=== PATIENT | female | born 1965 | race Caucasian/White ===

== ENCOUNTER 2022-08-08 00:59 | Emergency (ER) | payer OTHER ==
[~2022-08-08] VITALS: Ht 152.4 cm; Wt 113.9 kg
[~2022-08-08 00:59] MED LIST: ASA325 MG PO; ASA81 MG PO; ATROVASTATIN PO; AVAPRO300 MG PO; CEFADROXIL500 MG PO; COZAAR100 MG PO; FUROSEMIDE20 MG PO; HUMALOG100 U/M1 SQ; HUMULIN 50/50 V10 ML SQ; LASIX40 MG PO; PERCOCET 5/3251 TAB PO; SYNTHROID175 MCG PO; SYNTHROID200 MCG PO; SYNTHROID50 MCG PO
[2022-08-08] MEDS ORDERED: SYNTHROID100 MCG (01:20)
[2022-08-08] MEDS ORDERED: SYNTHROID112 MCG (01:21)
[2022-08-08] MEDS ORDERED: NEURONTIN300 MG (01:22)
[2022-08-08] MEDS ORDERED: CRESTOR5 MG (01:22)
[2022-08-08] MEDS ORDERED: PROZAC20 MG (01:23)
[2022-08-08] MEDS ORDERED: RESTORIL15 MG (01:23)
[2022-08-08] MEDS ORDERED: ALLEGRA ALLERG180 MG PO (02:46)
== END 2022-08-08 03:09 | disposition home or self-care (01) ==
LOC: ER 00:59
DX: L50.9 Urticaria, unspecified (principal)